=== PATIENT | female | born 1980 | race Caucasian/White ===

== ENCOUNTER 2017-05-14 03:44 | Emergency (ER) | payer SELFPAY ==
[~2017-05-14] VITALS: Ht 165.1 cm; Wt 58.1 kg
--- NOTE | 2017-05-14 03:50 | NUR ---
ELMER 89 FROM HOME FOR INCREASED AGITATION. VERSED 5MG IM GIVEN BY EMS EN ROUTE. PT IS AGRESSIVE AND TRYING TO BITE/SPIT ON POLICE/FIRE/NURSES IN ROOM. PT IS NOT ALERT AND ORIENTED AT THIS TIME AND CANNOT EXPLAIN WHAT IS CURRENTLY HAPPENING. WILL CONTINUE TO MONITOR FOR ANY CHANGES DURING THE SHIFT.
[2017-05-14 04:12] LABS: BASOPHILS % (AUTO) 0.3 % (0.0-2.0); EOSINOPHILS # (AUTO) 1.3 /CMM (0.0-0.7); EOSINOPHILS % (AUTO) 8.4 % (0.0-6.0); HEMATOCRIT 39 % (33-45); HEMOGLOBIN 12.5 g/dL (11.5-14.8); LYMPHOCYTES # (AUTO) 2.5 /CMM (0.8-4.8); LYMPHOCYTES % (AUTO) 16.9 % (20.0-44.0); MEAN CORPUSCULAR HEMOGLOBIN 29 PG (26.0-33.0); MEAN CORPUSCULAR HGB CONC 32 g/dl (31.0-36.0); MEAN CORPUSCULAR VOLUME 88 fL (82-100); MONOCYTES % (AUTO) 6.8 % (2.0-12.0); NEUTROPHILS # (AUTO) 10.2 /CMM (1.8-8.9); NEUTROPHILS % (AUTO) 67.6 % (43.0-81.0); PLATELET COUNT (AUTO) 289 /CMM (150-450); RDW COEFFICIENT OF VARIATION 15.5 (11.5-15.0); RED BLOOD CELL COUNT(AUTO) 4.39 MIL/uL (4.0-5.2)
[2017-05-14 04:21] LABS: CALCIUM, SERUM 9.1 mg/dL (8.5-10.1); CARBON DIOXIDE 21 mmol/L (21-32); CHLORIDE 103 mmol/L (98-107); CREATININE 1.1 mg/dL (0.6-1.3); GLUCOSE 89 mg/dL (74-106); POTASSIUM 3.8 mmol/L (3.5-5.1); SODIUM SERUM 139 mmol/L (136-145); UREA NITROGEN, BLOOD 20 mg/dL (7-18)
[2017-05-14 04:28] LABS: ALANINE AMINOTRANSFERASE 19 U/L (12-78); ALCOHOL, BLOOD < 3 mg/dL (0-0); ALKALINE PHOSPHATASE 62 U/L (46-116); ASPARTATE AMINOTRANSFERASE 19 U/L (15-37); BILIRUBIN,DIRECT 0.1 mg/dL (0.0-0.2); BILIRUBIN,TOTAL 0.2 mg/dL (0.2-1.0); TOTAL PROTEIN, SERUM 8.2 g/dL (6.4-8.2)
[2017-05-14 04:29] LABS: ACETAMINOPHEN 0 ug/ml (10-30); SALICYLATE 2.4 mg/dL (2.8-20.0)
--- NOTE | 2017-05-14 04:41 | NUR ---
CERTIFIED MEDICINE AIDE AT BEDSIDE TRYING TO GET OFF HANDCUFF THAT IS STUCK ON RAIL
--- NOTE | 2017-05-14 05:00 | NUR ---
PT IS OUT OF CONTROL SCREAMING PROFANITES AND TRYING TO HIT WORKERS
[2017-05-14] MEDS ORDERED: LORAZEPAM INJ 2 MG/ML VIAL ONE (05:26)
[2017-05-14] MEDS ORDERED: LORAZEPAM INJ 2 MG/ML VIAL IM ONE (05:30)
[2017-05-14 05:35] LABS: APPEARANCE,URINE CLOUDY (CLEAR); BILIRUBIN,URINE NEGATIVE (NEGATIVE); BLOOD, URINE 3+ Ery/uL (NEGATIVE); COLOR,URINE YELLOW (YELLOW); KETONES,URINE NEGATIVE (NEGATIVE); LEUKOCYTE ESTERASE ,URINE 3+ (NEGATIVE); NITRITE, URINE POSITIVE (NEGATIVE); PROTEIN,URINE 2+ mg/dl (NEGATIVE); UGLUCOSE NEGATIVE (NEGATIVE); UROBILINOGEN,URINE 0.2 EU/dL (0.2)
[2017-05-14 05:49] LABS: BACTERIA,URINE Few /HPF (None Seen); SQUAMOUS EPITHELIAL CELL,UR Few /HPF (None Seen); WBC,URINE TOO NUMEROUS TO COUN /HPF (0-3)
--- NOTE | 2017-05-14 06:36 | NUR ---
PT IS COMFORTABLE AND HAS CALMED DOWN IN BED
--- NOTE | 2017-05-14 07:24 | NUR ---
RECEIVED REPORT FOR [facility].
--- NOTE | 2017-05-14 13:10 | NUR ---
PATIENT STILL SEDATED, BUT ABLE TO MUMBLE AND CONVERSATE AT THIS TIME. VITALS REMAIN STABLE. WILL CONTINUE TO MONITOR .
[2017-05-14] MEDS ORDERED: CEFTRIAXONE 1GM BAG (ER ONLY) 1 GM/50 ML PIGGYBACK IV ONE (14:30)
[2017-05-14] MEDS ORDERED: CIPROFLOXACIN HCL 500 MG TABLET ONE (14:54)
--- NOTE | 2017-05-14 14:55 | NUR ---
PATIENT ABLE TO STATE SHE IS ALLERGIC TO PCN. MD INFORMED, CANCELLED ROCEPHIN. ROCEPHIN WASTED, PO CIPRO GIVEN INSTEAD.
[2017-05-14] MEDS ORDERED: CIPROFLOXACIN HCL 250 MG TABLET PO ONE (15:00)
--- NOTE | 2017-05-14 15:15 | NUR ---
PATIENT TAKEN TO CT VIA STRETCHER.
[2017-05-14] MEDS ORDERED: HALOPERIDOL LACTATE INJ 5 MG/ML VIAL ONE (15:19)
--- NOTE | 2017-05-14 15:24 | NUR ---
PATIENT RETURNED BACK FROM CT SCAN VERY AGITATED, SCREAMING, YELLING, AND CUSSING. DR. WILSON INFORMED, ORDERED 5 MG HALDOL IM. ADMINISTERED ON LEFT DELTOID, IM.
[2017-05-14] MEDS ORDERED: IV D5/0.45 NACL 1,000 ML IV ONE (16:00)
[2017-05-14] MEDS ORDERED: HALOPERIDOL LACTATE INJ 5 MG/ML VIAL IM ONE (16:00)
--- NOTE | 2017-05-14 16:20 | NUR ---
NEW IV STARTED ON RIJ, 20 G PER MD ORDERS. FLUIDS STARTED AT 200ML/HR PER DR. WILSON. Addendum: 05/14/17 at 1634 by DINH CORRECTION: NEW IV ON REJ*
--- NOTE | 2017-05-14 19:09 | NUR ---
REPORT GIVEN TO TOMAS HUMPHREYS FOR [facility].
--- NOTE | 2017-05-14 20:07 | NUR ---
PT IS SLEEPING. NO SIGNS OF AGITATION AT THIS TIME.
--- NOTE | 2017-05-14 21:13 | NUR ---
PT TO CT
--- NOTE | 2017-05-14 21:30 | NUR ---
BACK FROM CT
--- NOTE | 2017-05-15 00:53 | NUR ---
PT IS SLEEPING. NOT AGITATED AT THIS TIME.
--- NOTE | 2017-05-15 02:37 | NUR ---
PT SLEEPING IN BED WITH NO COMPLAINTS X2 HOURS
--- NOTE | 2017-05-15 06:47 | NUR ---
PT STARTING TO BE AWAKE BUT NOT COHERENT
--- NOTE | 2017-05-15 07:15 | NUR ---
PT IS STILL NOT COHERENT
--- NOTE | 2017-05-15 07:15 | NUR ---
RECIEVED PT AT THIS TIME. PT APPEARS TO BE ASLEEP, BOTH EYES CLOSED, AROUSABLE BY VERBAL AND TACTILE STIMULATION. NAD. VSS. PT REPOSITIONED. WILL CONT TO MONITOR
--- NOTE | 2017-05-15 08:00 | NUR ---
I AM TRYING TO WAKE UP THE PATIENT SO SHE COULD EAT BREAKFAST. PT APPEARS TO BE VERY SLEEPY. PT RESPONDED, "I DON'T WANT TO EAT, LEAVE ME ALONE, GO AWAY SATAN!"
--- NOTE | 2017-05-15 08:37 | NUR ---
DR DELVALLE UPDATED W/ PT'S STATUS
--- NOTE | 2017-05-15 11:02 | NUR ---
PT GOT HER PERIOD AT THIS TIME. PT CLEANED AND DIAPERED. WILL CONT TO MONITOR
--- NOTE | 2017-05-15 11:25 | NUR ---
OREDERED LUNCH FOR PATIENT
[2017-05-15] MEDS ORDERED: AMMONIA NASAL INHALATION 1 EA PACK NAS ONE (11:34)
--- NOTE | 2017-05-15 11:52 | NUR ---
Dion Joseph called for PET eval
[2017-05-15] MEDS ORDERED: OLANZAPINE 5 MG TABLET PO ONE (13:30)
--- NOTE | 2017-05-15 17:04 | NUR ---
PT'S FRIEND ABDOUL PHONE [phone], UNABLE TO RN LAB THE PT.
--- NOTE | 2017-05-15 17:04 | NUR ---
PT UNABLE TO GIVE URINE AT THIS TIME.
--- NOTE | 2017-05-15 20:16 | NUR ---
PATIENT IS RESTING IN ER BED, NO DISTRESS NOTED, SKIN WARM AND DRY. PATIENT IS ON [employer]. WILL CONTINUE TO MONITOR VITAL SIGNS UPDATED.
[2017-05-15 20:36] VITALS: BP 121/81
--- NOTE | 2017-05-15 20:37 | NUR ---
Patient discharged to home in stable condition. Written and verbal after care instructions given. Patient verbalizes understanding of instruction.IV removed. Catheter intact and site benign. Pressure and 4x4 applied to site. No bleeding noted. pt ambulatory with a steady gait
== END 2017-05-15 20:36 | disposition home or self-care (01) ==
LOC: ER 03:45
DX: F19.959 Other psychoactive substance use, unspecified with psychoactive substance-induced psychotic disorder, unspecified (principal); F15.10 Other stimulant abuse, uncomplicated; F31.9 Bipolar disorder, unspecified
CPT/HCPCS: 36415; 70450; 80048; 80076; 80305; 80329; 81001; 85025; 87077; 87086; 87186; 96360; 96361; 96372; 99285; A4606; G0480 ×2; J1630; J2060; J3490; Z7610; 81000-TC; J0696